=== PATIENT | female | born 1930 | race Caucasian/White ===

== ENCOUNTER 2017-11-06 08:59 | Outpatient (CLI) | payer OTHER ==
[~2017-11-06 08:59] MED LIST: AMITRIPTYLINE H25 MG; CELEBREX100 MG PO; COLACE100 MG; LEVODOPA5 GM MC; NABUMETONE500 MG; SKELAXIN800 MG PO; SYNTHROID50 MCG
== END 2017-11-06 09:07 | disposition home or self-care (01) ==
LOC: LAB 08:59
DX: I11.9 Hypertensive heart disease without heart failure (principal); E11.9 Type 2 diabetes mellitus without complications; E78.2 Mixed hyperlipidemia; E03.8 Other specified hypothyroidism

== ENCOUNTER 2017-12-14 14:37 | Outpatient (CLI) | payer OTHER | END 2017-12-14 16:42 | disposition home or self-care (01) | LOC: SONOGRAMA 14:37 | DX: M65.849 Other synovitis and tenosynovitis, unspecified hand (principal) ==

== ENCOUNTER 2017-12-14 14:42 | Outpatient (CLI) | payer OTHER | END 2017-12-14 16:06 | disposition home or self-care (01) | LOC: RAD 14:42 → SONOGRAMA 14:42 → RAD 16:06 | DX: M19.042 Primary osteoarthritis, left hand (principal) ==